=== PATIENT | female | born 1950 | race Caucasian/White ===

== ENCOUNTER 2020-03-03 11:32 | Outpatient (REF) | payer MEDICARE, SELFPAY | END 2020-03-03 11:33 | disposition home or self-care (01) | LOC: HO.LAB 11:32 | PROVIDERS: PCP Nurse Practitioner Family; Visit Provider Nurse Practitioner Gerontology | DX: Z20.828 Contact with and (suspected) exposure to other viral communicable diseases (principal) | CPT/HCPCS: 87635 ==

== ENCOUNTER 2020-04-01 16:34 | Outpatient (REF) | payer MEDICARE, SELFPAY | END 2020-04-01 16:35 | disposition home or self-care (01) | LOC: HO.LAB 16:34 | PROVIDERS: PCP Nurse Practitioner Family; Visit Provider Internal Medicine | DX: Z20.828 Contact with and (suspected) exposure to other viral communicable diseases (principal) | CPT/HCPCS: C9803; U0003 ==

== ENCOUNTER 2020-05-29 10:09 | Outpatient (REF) | payer MEDICARE, SELFPAY ==
--- NOTE | 2020-05-29 10:14 | MM_ITS ---
EXAMINATION: MM SCREENING DIGITAL BREAST TOMOSYNTHESIS, BILATERAL CLINICAL INFORMATION: Screening. Asymptomatic. Prior history right kidney for breast cancer 2010. COMPARISON: Mammography: 05/06/2019, 04/25/2018, 03/17/2017 TECHNIQUE: Digital breast tomosynthesis is performed in both the craniocaudal and mediolateral oblique views along with computer-aided detection (CAD). Synthesized 2D images are generated from the tomosynthesis. Additional exaggerated right CC view is provided. FINDINGS: There are scattered areas of fibroglandular density (ACR BI-RADS breast composition Category b). Changes on the right with decreased breast size. Stable scarring. Neither breast shows interval mass or architectural abnormality or abnormal calcifications. There are no significant changes from prior studies. MM/MM tomosynthesis screening BI IMPRESSION: No significant changes from prior exams. Post therapy changes right breast, stable. ASSESSMENT: BI-RADS 2: Benign RECOMMENDATION: Routine annual mammography screening. This patient's information was entered into a reminder system with a target due date for their next mammogram.
== END 2020-05-29 10:10 | disposition home or self-care (01) ==
LOC: HO.MAMMO 10:09
PROVIDERS: Visit Provider Nurse Practitioner Family
DX: Z12.31 Encounter for screening mammogram for malignant neoplasm of breast (principal)
CPT/HCPCS: 77063; 77067

== ENCOUNTER 2020-12-25 13:44 | Emergency (ER) | payer MEDICARE, SELFPAY ==
--- NOTE | ~2020-12-25 | XR_ITS ---
EXAMINATION: XR WRIST, LEFT CLINICAL INFORMATION: Wrist pain. COMPARISON: None TECHNIQUE: PA, lateral, and oblique views of the left wrist. FINDINGS: There is a comminuted distal radial fracture with intra-articular extension. Also visualized is minimally displaced ulnar styloid process fracture. There is mild dorsal soft tissue swelling. XR/XR wrist LT min 3V IMPRESSION: Comminuted distal radial fracture with intra-articular extension.
[2020-12-25 14:32] VITALS: BP 163/90; PULSE 66; RESP 16; TEMP 36.2; O2SAT 97; BMI 34.7
[2020-12-25] MEDS: Ketorolac Tromethamine 15 MG/ML VIAL 30 MG IM (15:07)
--- NOTE | 2020-12-25 15:28 | ED.EXTPRO ---
HPI - Extremity Problem General Chief complaint: Extremity Injury, Upper Stated complaint: + fracture wrist Time Seen by Provider: 12/25/20 14:39 Source: patient Mode of arrival: ambulatory Limitations: no limitations History of Present Illness HPI Narrative: Patient presents to ED for left upper extremity injury. Patient states last night she slipped and fell onto her left hand/wrist. Patient denies hitting head or loss of consciousness. Patient sent for urgent care for evaluation. MD Complaint: extremity pain Related Data Previous Rx's Medication Instructions Recorded ketorolac 10 mg tablet 10 mg PO QID PRN 5 Days #20 tab 12/25/20 Allergies Allergy/AdvReac Type Severity Reaction Status Date / Time simvastatin [SIMVASTATIN] Allergy Mild NAUSEA Unverified 02/06/20 15:16 acetaminophen [From PERCOCET] AdvReac Mild DIZZINESS/L Unverified 02/06/20 15:16 IGHTHEADEDN ESS OxyContin Allergy Unknown Uncoded 06/24/11 00:00 From PERCOCET AdvReac Mild DIZZINESS/L Uncoded 02/06/20 15:16 IGHTHEADEDN ESS Review of Systems Review of Systems: Yes all other systems are reviewed and are negative Constitutional: Constitutional: Reports as per HPI and Reports no additional constitutional complaints Eyes: Eyes: Reports as per HPI and Reports no additional eye complaints ENT: Reports system reviewed and no additional complaints, except as documented and Reports as per HPI Cardiovascular: Cardiovascular: Reports as per HPI and Reports no additional cardiovascular complaints Respiratory: Respiratory: Reports as per HPI and Reports no additional respiratory complaints Gastrointestinal: Gastrointestinal: Reports as per HPI and Reports no additional gastrointestinal complaints Musculoskeletal: Musculoskeletal: Reports no additional musculoskeletal complaints and Reports arthralgias (Left wrist) Neurologic: Reports system reviewed and no additional complaints, except as documented and Reports as per HPI FORMERLY [facility], [facility] Past Medical History Medical History (Updated 12/25/20 @ 16:30 by HONG Stanley) No known health problems Social History Social History Advance Directives: No Advance Directives Information Provided: No Physical Exam Vital Signs: Vital Signs: Last Vital Signs Temp 97.1 F 12/25/20 14:32 Pulse 66 12/25/20 14:32 Resp 16 12/25/20 14:32 BP 163/90 H 12/25/20 14:32 Pulse Ox 97 12/25/20 14:32 Body Mass Index 34.7 Const: General: cooperative, healthy appearing, comfortable, no acute distress, well developed, alert and awake Orientation/consciousness: patient oriented x3 HENMT: Head: Yes normal to inspection, Yes No palpable skull fracture present, Yes normocephalic, Yes atraumatic and No abrasion Eyes: General: appearance normal, both eyes and all related structures Neck: Neck: Yes normal visual inspection, Yes full ROM, Yes no lymphadenopathy, Yes no meningeal signs, Yes trachea midline, Yes supple and No tender Chest: Chest palpation & inspection: normal inspection of the chest and normal palpation of entire chest wall Resp: Effort & Inspection: normal respiratory effort and able to speak in complete sentences Auscultation: clear to auscultation bilaterally Cardio: Jugular venous distension: no JVD Heart sounds: S1 normal heart sound present and S2 normal heart sound present GI: Inspection: Yes normal to inspection and No abdominal wall ecchymosis Palpation (GI): Soft to palpation, not firm, nontender, no guarding and not rigid : General: No CVA tenderness and Yes no CVA tenderness Back/Spine/Pelvis: Back: no CVA tenderness, No CVA tenderness and No back tenderness Skin: General skin exam: no rashes or lesions noted and elasticity normal Neuro: General: patient oriented x3, gait normal, no meningeal signs and CN's II-XI intact bilaterally Cranial nerves: Yes CN's II-XII intact bilaterally Extrem: General: Yes normal to inspection and Yes full ROM Hand/finger images: 1. Positive for ecchymosis and tenderness on palpation. Vascular and neuro exam is intact. Motor exam limited due to pain Course Course Course Narrative: Patient will be sent for x-rays. Reevaluation(s) Reevaluation #1: X-ray shows left committed radial fracture. Patient placed in sugar-tong splint. Patient will follow-up with PCP Time: 16:27 MDM - Extremity (Nontraumatic) MDM Narrative Medical decision making narrative: Wrist fracture Discharge Plan Discharge Clinical Impression: Fracture of wrist Patient Disposition: Home, Self-Care Instructions: Wrist Fracture in Adults (ED) Additional Instructions: Your x-ray shows wrist fracture. Please contact orthopedic surgeon information that you were given. Return to the ED for severe pain, swelling, redness, bluish black discoloration of fingertips, numbness/tingling, or any other concerning symptoms. Prescriptions: New ketorolac 10 mg tablet 10 mg PO QID PRN (Reason: pain) 5 Days Qty: 20 RF: 0 Referrals: Jameson Bates MD [Physician] - 2 days (Left wrist fracture) Interventions: ED Discharge Assessment Last Done: 12/25/20 16:59 Discharge Date/Time: 12/25/20 17:01 Print Language: Bulgarian
== END 2020-12-25 17:01 | disposition home or self-care (01) ==
LOC: HO.ED 13:44
PROVIDERS: Emergency Provider Emergency Medicine Emergency Medical Services; PCP Nurse Practitioner Family; Visit Provider Internal Medicine
DX: S52.572A Other intraarticular fracture of lower end of left radius, initial encounter for closed fracture (principal); W01.0XXA Fall on same level from slipping, tripping and stumbling without subsequent striking against object, initial encounter; Y93.9 Activity, unspecified; Y92.9 Unspecified place or not applicable; Y99.9 Unspecified external cause status
CPT/HCPCS: 29125; 73110; 96372; 99283; 99284; J1885

== ENCOUNTER 2020-12-30 05:49 | Outpatient (REF) | payer MEDICARE, SELFPAY ==
--- NOTE | ~2020-12-30 | XR_ITS ---
EXAMINATION: XR WRIST, LEFT CLINICAL INFORMATION: Left wrist pain, fracture COMPARISON: 12/27/2020 TECHNIQUE: PA, lateral, and oblique views of the left wrist. FINDINGS: Redemonstration of the complex intra-articular fracture of the distal radius. There is been an increase in the impaction and volar displacement of 12/25/2020. No change in the minimally displaced avulsion fracture of the ulnar styloid. XR/XR wrist LT min 3V IMPRESSION: Worsening alignment of the complex intra-articular fracture of the distal radius, with increase in impaction/overriding and volar displacement.
== END 2020-12-30 05:50 | disposition home or self-care (01) ==
LOC: HO.HOSX 05:49
PROVIDERS: Visit Provider Physician Assistant
DX: S52.501A Unspecified fracture of the lower end of right radius, initial encounter for closed fracture (principal); W18.09XA Striking against other object with subsequent fall, initial encounter; Y93.9 Activity, unspecified; Y92.9 Unspecified place or not applicable; Y99.9 Unspecified external cause status
CPT/HCPCS: 73110; 99202

== ENCOUNTER 2020-12-31 06:03 | Day surgery (SDC) | payer MEDICARE, SELFPAY ==
[2020-12-31] VITALS (7 sets, daily range): BP systolic 144–172; BP diastolic 83–105; PULSE 62–77; RESP 16–18; TEMP 36.1–36.2; O2SAT 94–96; BMI 33.6
--- NOTE | ~2020-12-31 | FL_ITS ---
EXAMINATION: XR FLUOROSCOPY WITH IMAGES CLINICAL INFORMATION: ORIF left wrist COMPARISON: Left wrist 12/30/2020 TECHNIQUE: Fluoroscopy performed by Dr. Charlette Guzman. Fluoroscopy time: 56.9 seconds DAP: 3227 mGycm2 Images: 4 FINDINGS: There is a dorsal distal radial plate and screws stabilizing distal radial fracture and alignment. The radioulnar joint space is normal. Small ulnar styloid process fracture is unchanged. FL/FL guidance in OR IMPRESSION: Status post ORIF distal radius with fracture fragments in alignment.
[2020-12-31 06:24] LABS: Glucose, Whole Blood 106 mg/dL (60-115)
[2020-12-31] MEDS: Lactated Ringers 1,000 ML 50 ML IVCONT (08:02)
--- NOTE | 2020-12-31 08:03 | P.OP_ITS ---
Operative Note Operative Note Date of Service: 12/31/20 Narrative: Operative Note Narrative: Preop diagnosis: 1. Left Distal radius fracture, comminuted intra-articular volar Butler Postop diagnosis: Same Procedure: 1. Distal radius fracture open reduction internal fixation, 2 part intra-articular Surgeon: Jo Guzman MD Anesthesia: Mac plus regional block Findings: Volar Butler fracture pattern with volar displacement and proximal migration of the fragment and the carpus. Implants: A 3 hole standard Accu Med volar locking plate, with 5 2.3 mm locking pegs/screws, and 3 3.5 mm cortical screws Tourniquet time: 55 minutes EBL: 5.0 ml Specimen: None Drains: None Complications: None Disposition: Brought to the recovery room in stable condition Plan: Follow-up in 10-14 days for wound check, suture removal and postop radiographs The patient will be placed in either short-arm cast Encouraged no lifting of anything heavier than a cell phone. Please encourage active and passive range of motion of the digits. Follow-up at 4-5 weeks postop for repeat radiographs. Indications: The patient is a 70 year old woman with left comminuted intra- articular distal radius fracture, volar Butler . The risks and benefits of operative treatment, including but not limited to risk of damage to blood vessels, nerves, tendons, infection, recurrence, persistent pain or numbness, incomplete resolution of preoperative symptoms, or need for further surgery were discussed with the patient and they wished to proceed with surgery. Procedure: Once consent was obtained patient was brought back to the operating suite and placed in the operating table in a supine position. A regional block was performed by the anesthesia team. Perioperative antibiotics and anesthesia was administered by the anesthesia team. A tourniquet was applied to the proxi mal aspect of the left upper extremity and the limb was prepped and draped in a standard surgical fashion. The limb was elevated exsanguinated with Esmarch bandage and the tourniquet inflated to 250 mm of mercury for a total tourniquet time of 55 minutes. The FluoroScan was used throughout the case to assess our reduction, and facilitate implant placement. I made a 7 cm longitudinal incision over the distal aspect of the flexor carpi radialis tendon. The incision was made through the skin to the subcutaneous tissue using a 15. Blade. Then carefully dissected down to flexor carpi radialis tendon she tenotomy scissors. The FCR tendon sheath was then incised longitudinally using tenotomy scissors under direct visualization. The FCR tendon was then retracted ulnarly. I then made a longitudinal incision in the volar forearm fascia through the floor of FCR tendon sheath using tenotomy scissors under direct visualization. I identified the interval between the radial artery and the flexor tendons. This interval was developed further with my index finger, releasing some of the muscular fibers of the flexor pollicis longus. A dull weatlander retractor was then placed. I then created an ulnarly based flap of the pronator quadratus by releasing the radial and distal edges using a 15. Blade. A Pardo elevator was used to elevate the pronator quadratus from the volar surface of the distal radius. This then revealed to us our distal radius fracture. It was a volar Butler type fracture with volar displacement and proximal migration of the volar aspect of the distal radius and the carpus. An open reduction was then performed on our distal radius fracture. I then placed a short standard 3 hole Accu Med volar locking plate on the volar surface of the distal radius. I then secured the plate to the shaft with the 3.5 mm cortical screw through the oval hole. This was done by 1st drilling bicortically with a 2.8 mm drill bit and then placing a 12 mm 3.5 mm cortical s crew. Our reduction and placement of these implants was assessed on fluoroscopic images and adjusted as necessary to assure that we would capture the lunate facet fragment, and then a K-wire was placed through 1 of the distal hole securing the plate to the distal articular aspect of the radius. Once satisfied with the placement of these implants I then placed 5 2.3 mm locking screws/pegs through the distal aspect of the plate into the distal aspect of the radius. This was done by drilling through the pre position drill guide with a 1.8 mm drill bit, measuring and placing the appropriate length locking screw/locking peg. Once satisfied with the placement of these implants fluoroscopically I then placed 2 additional 3.5 mm cortical screws in the method noted above. Final radiographs were then obtained. The DRUJ was assessed and found to be stable on exam. I was satisfied with our reduction and placement of all implants. At this point the wound was irrigated with normal saline. The pronator quadratus was reduced back over the volar locking plate using some 3-0 Vicryl suture material. The tourniquet was then deflated and hemostasis was obtained with a brief period of local pressure and bipolar monopolar electrocautery. The subcutaneous layer was then reapproximated using some 4-0 Vicryl suture, and the skin edges were reapproximated using some 5 0 Prolene suture. The wound was then infiltrated with some 1% lidocaine with epinephrine postop pain control. A sterile dressing and a short dorsal splint allowing for active flexion and extension of the digits was applied. The patient appears to have tolerated the procedure well and with no complications. All digits were well vascularized conclusion of the case.
--- NOTE | 2020-12-31 08:05 | P.HPSUR_ITS ---
Pre-Procedural Eval Section A Date of Service: 12/31/20 Section B Chief Complaint: Distal Radius Fracture Allergies: Allergies Allergy/AdvReac Type Severity Reaction Status Date / Time simvastatin [SIMVASTATIN] Allergy Mild NAUSEA Verified 12/30/20 09:02 acetaminophen [From PERCOCET] AdvReac Mild DIZZINESS/L Verified 12/30/20 09:02 IGHTHEADEDN ESS codeine AdvReac CONFUSION/L Verified 12/31/20 07:28 [From Tylenol-Codeine #3] OOPY propoxyphene [From Darvon] AdvReac CONFUSION/L Verified 12/31/20 07:27 OOPY demorol Allergy Severe Nausea Uncoded 12/30/20 09:02 OxyContin Allergy Unknown Nausea Uncoded 12/30/20 09:02 From PERCOCET AdvReac Mild DIZZINESS/L Uncoded 02/06/20 15:16 [facility] I have reviewed the history and physical and performed a pertinent physical examination on my patient. No changes have occurred unless specified.
--- NOTE | 2020-12-31 09:40 | HO.ANESPROP2 ---
HPI - Anesthesia Eval Consult details Narrative: 70-year-old female here for radius fracture ORIF PMFSH Active Problems Active Problems: All Active Problems (Updated 12/30/20 @ 09:44 by Damaso Beasley) Distal radius fracture, right (Acute) Past Medical History Medical History (Updated 12/30/20 @ 09:44 by Damaso Beasley) Brain aneurysm Cataract Hypercholesteremia Hypertension Hypoglycemic disorder No known health problems Family History Family history of problems with anesthesia: No Surgical History Surgical History H/O wrist surgery S/P cholecystectomy History of Problems with Anesthesia: No Social History Social History (Updated 12/30/20 @ 09:03 by Damaso Beasley) Patient Tobacco Use Status: Never used Tobacco Use of substances other than those prescribed or required for medical reasons: No Have you been hit, kicked, punched, or otherwise hurt by someone within the past year? If so, by whom?: No Are you DNR?: No Advance Directives: No Advance Directives Information Provided: Yes Current occupational status: retired Current occupation: rt handed/ Meds Allergies Allergy/AdvReac Type Severity Reaction Status Date / Time simvastatin [SIMVASTATIN] Allergy Mild NAUSEA Verified 12/30/20 09:02 acetaminophen [From PERCOCET] AdvReac Mild DIZZINESS/L Verified 12/30/20 09:02 IGHTHEADEDN ESS codeine AdvReac CONFUSION/L Verified 12/31/20 07:28 [From Tylenol-Codeine #3] OOPY propoxyphene [From Darvon] AdvReac CONFUSION/L Verified 12/31/20 07:27 OOPY demorol Allergy Severe Nausea Uncoded 12/30/20 09:02 OxyContin Allergy Unknown Nausea Uncoded 12/30/20 09:02 From PERCOCET AdvReac Mild DIZZINESS/L Uncoded 02/06/20 15:16 IGHTHEADEDN ESS Active Medications: Current Medications Generic Name Dose Route Start Last Admin Trade Name Freq PRN Reason Stop Dose Admin Acetaminophen 650 mg 12/31/20 09:38 Acetaminophen 325 Mg Tablet PO ONCE PRN Pain, Mild (Pain Scale 1-3) Hydromorphone HCl 0.5 mg 12/31/20 09:38 Hydromorphone Hcl 0.5 Mg/0.5 Ml Syringe IVPUSH Q5M PRN Pain, Severe (Pain Scale 7-10) Protocol Lactated Ringer's 1,000 mls @ 50 mls/hr 12/31/20 08:00 12/31/20 08:02 Lr IVCONT 50 mls/hr .Q20H MAR Administration Promethazine HCl 12.5 mg/ 50.5 mls @ 202 mls/hr 12/31/20 09:38 Sodium Chloride IV ONCE PRN Nausea and Vomiting Ondansetron HCl 4 mg 12/31/20 09:38 Ondansetron Hcl 4 Mg/2 Ml Vial IVPUSH ONCE PRN Nausea and Vomiting Oxycodone HCl 5 mg 12/31/20 09:38 Oxycodone Hcl Immed Release 5 Mg Tablet PO ONCE PRN Pain, Severe (Pain Scale 7-10) Home Medications Medication Instructions Recorded Confirmed Last Taken Type atorvastatin 10 mg tablet 10 mg PO DAILY 12/30/20 Unknown History losartan 100 mg tablet 100 mg PO DAILY 12/30/20 12/31/20 06:49 History Exam Exam Date and Time: December 31, 2020 0940 Height,Weight and Vital Signs: Height 5 ft 4 in Weight 196 lb Last Vital Signs Temp 97.2 F 12/31/20 06:24 Pulse 77 12/31/20 06:24 Resp 18 12/31/20 06:24 BP 144/105 H 12/31/20 06:24 Pulse Ox 95 12/31/20 06:24 Pertinent Lab Results Pertinent Lab Results: Laboratory Tests 12/31/20 06:16 POC Glucose 106 Airway Mallampati Class: II TM Dist: >3cm Neck ROM: Full Loose/Missing/Broken Teeth: Yes Assessment and Plan Assessment Anesthesia Assessment: Anesthesia Plan Discussed and Chart Reviewed Final Anesthetic Review Family History of Problems with Anesthesia: No History of Problems with Anesthesia: No ASA Class: III Final Preanesthetic Review: No Changes in Pt Med Stat, Meds/Allgs Chart Reviewed, Consent Obtained/Reviewed and Anes Risks/Benef Reviewed Patient Risk: Intermediate Procedure Risk: Low Anesthetic Plan Anesthetic Plan: GA and Regional Block Disposition: Standard PACU
[2020-12-31] MEDS: ondansetron HCL 4 MG/2 ML VIAL IVPUSH (10:10)
[2020-12-31] MEDS: Acetaminophen 325 MG TABLET 650 MG PO (11:37)
[2020-12-31] MEDS: Ibuprofen 600 MG TABLET PO (11:57)
== END 2020-12-31 12:00 | disposition home or self-care (01) ==
PROVIDERS: PCP Nurse Practitioner Family; Visit Provider Orthopaedic Surgery
PROC: (CPT 25608; principal; 2020-12-31 07:30)
DX: S52.572A Other intraarticular fracture of lower end of left radius, initial encounter for closed fracture (principal); W01.0XXA Fall on same level from slipping, tripping and stumbling without subsequent striking against object, initial encounter; Y93.01 Activity, walking, marching and hiking; Y92.9 Unspecified place or not applicable; Y99.8 Other external cause status; I10 Essential (primary) hypertension; E16.2 Hypoglycemia, unspecified; Z79.899 Other long term (current) drug therapy; Z88.8 Allergy status to other drugs, medicaments and biological substances
CPT/HCPCS: 25608; 82947; C1713; C1769; J0690; J1100; J2250; J2405; J3010

== ENCOUNTER 2021-01-06 08:31 | Outpatient (REF) | payer MEDICARE, SELFPAY ==
--- NOTE | ~2021-01-06 | XR_ITS ---
EXAMINATION: XR WRIST, LEFT CLINICAL INFORMATION: Pain; ORIF of distal radial fracture. COMPARISON: Prior examinations, most recently 12/30/2020. TECHNIQUE: PA, lateral, and oblique views of the left wrist. FINDINGS: There is bony demineralization. There is moderate osteoarthritic change of the fifth metacarpophalangeal joint. There is moderately severe osteoarthritic change of the first carpometacarpal joint. The proximal and distal carpal rows are intact. There is narrowing of the radiocarpal interval. There is an ulnar positive variance. There is stable alignment of an intra-articular fracture of the distal left radius, with intact volar fixator plate and fixator screws. There is stable alignment of a mildly displaced ulnar styloid fracture fragment. The soft tissue planes are unremarkable, without foreign body. XR/XR wrist LT min 3V IMPRESSION: There is stable alignment of distal left radial and ulnar fracture fragments status-post ORIF.
[2021-01-06 15:22] LABS: Anion Gap 14 (12-20); Blood Urea Nitrogen 7 mg/dL (9-16); Calcium 9.7 mg/dL (8.4-10.2); Carbon Dioxide 26 mmol/L (22-29); Chloride 104 mmol/L (96-108); Estimated Glomerular Filt Rate > 60; Glucose Random 99 mg/dL (60-115); Potassium 4.4 mmol/L (3.3-5.1); Sodium 140 mmol/L (135-145)
== END 2021-01-06 08:32 | disposition home or self-care (01) ==
LOC: HO.HOSX 08:31
PROVIDERS: Absent Provider Internal Medicine; PCP Nurse Practitioner Family; Visit Provider Orthopaedic Surgery
DX: S52.502D Unspecified fracture of the lower end of left radius, subsequent encounter for closed fracture with routine healing (principal); R10.13 Epigastric pain
CPT/HCPCS: 36415; 73110; 80048; 99212

== ENCOUNTER 2021-01-13 08:17 | Outpatient (REF) | payer MEDICARE, SELFPAY ==
--- NOTE | ~2021-01-13 | XR_ITS ---
EXAMINATION: XR WRIST, LEFT CLINICAL INFORMATION: Left wrist pain COMPARISON: Left wrist radiographs 01/06/2020 TECHNIQUE: PA, lateral, and oblique views of the left wrist. FINDINGS: Again noted are fractures of the distal radius and ulna. Plate and screw device is present over the distal radial fracture and appears unchanged when compared to the prior study. The appearance of the ulnar styloid fracture is unchanged. Moderate degenerative changes present at the 1st metacarpocarpal joint which are unchanged. XR/XR wrist LT min 3V IMPRESSION: Unchanged appearances when compared to 01/06/2020 with distal radial and ulnar fractures and other incidental findings as described above.
== END 2021-01-13 08:18 | disposition home or self-care (01) ==
LOC: HO.HOSX 08:17
PROVIDERS: Visit Provider Orthopaedic Surgery
DX: Z13.89 Encounter for screening for other disorder (principal)
CPT/HCPCS: 73110

== ENCOUNTER 2021-01-13 08:28 | Outpatient (REF) | payer MEDICARE, SELFPAY ==
--- NOTE | ~2021-01-13 | CT_ITS ---
EXAMINATION: CT ABDOMEN AND PELVIS WITH CONTRAST CLINICAL INFORMATION: Epigastric pain. COMPARISON: Previous CT colonography exam March 2017 TECHNIQUE: Multidetector volumetric images were obtained from the superior aspect of the liver through the pubic symphysis following administration 85 mL of Omnipaque 350 intravenous contrast. Sagittal and coronal reformatted images were obtained on the technologist's workstation. Oral contrast: Yes. This CT examination was performed using dose optimization techniques as appropriate, variously including the following: *Automated exposure control *Adjustment of mA and/or kV according to patient size (this includes techniques or standardized protocols for targeted exams where dose is matched to indication/reason for exam; i.e. extremities or head) *Use of iterative reconstruction technique DLP: 606 mGy-cm FINDINGS: LUNG BASES: The visualized lung bases are unremarkable. LIVER, GALLBLADDER, AND BILIARY TREE: The liver is low in attenuation suggestive of fatty infiltration. The gallbladder has been removed. No focal hepatic lesion or biliary ductal dilatation is present. PANCREAS: Unremarkable. SPLEEN: Unremarkable. ADRENAL GLANDS: Unremarkable. KIDNEYS AND URETERS: There is a 4 cm right renal cyst. The kidneys are otherwise unremarkable. BLADDER: Unremarkable. GASTROINTESTINAL TRACT: There is diverticulosis of the colon. There is mild wall thickening of the sigmoid colon. While this may represent chronic changes related to diverticular disease, it is difficult to exclude mild diverticulitis and clinical correlation is recommended. The small and large bowel is otherwise unremarkable. The stomach is unremarkable. The appendix is unremarkable. ABDOMINAL WALL: There is a small umbilical hernia containing fat. LYMPH NODES: Normal. VASCULAR: There is evidence of atherosclerotic disease. No aneurysm is seen. PELVIC VISCERA: There may be mild endometrial thickening or fluid. Endometrial thickness measures 6-7 mm. The uterus and adnexa are otherwise unremarkable. OSSEOUS STRUCTURES: There is spondylolysis and spondylolisthesis and degenerative disc disease at L5-S1. There is degenerative disc disease at L2-L3. CT/CT abdomen pelvis w con IMPRESSION: Diverticular disease of the sigmoid colon. Right renal cyst. Fatty liver. Question endometrial fluid or thickening. This could be better assessed with pelvic ultrasound, particularly if there is history of vaginal bleeding.
[2021-01-13] MEDS: iohexoL 350 MG/ML 100 ML INFUS..BTL IV (12:02)
== END 2021-01-13 08:29 | disposition home or self-care (01) ==
LOC: HO.CT 08:28
PROVIDERS: Visit Provider Internal Medicine
DX: R10.13 Epigastric pain (principal); S52.502D Unspecified fracture of the lower end of left radius, subsequent encounter for closed fracture with routine healing
CPT/HCPCS: 29085; 73110; 74177; 99212; Q9967

== ENCOUNTER 2021-02-17 08:24 | Outpatient (REF) | payer MEDICARE, SELFPAY ==
--- NOTE | ~2021-02-17 | XR_ITS ---
EXAMINATION: XR WRIST, LEFT CLINICAL INFORMATION: Left wrist pain. COMPARISON: Left wrist 01/13/2021 TECHNIQUE: PA, lateral, and oblique views of the left wrist. FINDINGS: There is a fracture distal radius stabilized with volar plate and screws with a fracture fragment alignment and stable compared to previous study 01/13/2021. There is an old ulnar styloid process fracture which is unchanged. The soft tissues are normal. XR/XR wrist LT min 3V IMPRESSION: Stable healed distal radial fracture following ORIF. Old ulnar styloid process fracture is noted. Overall no change from 01/13/2021
== END 2021-02-17 08:25 | disposition home or self-care (01) ==
LOC: HO.HOSX 08:24
PROVIDERS: Visit Provider Orthopaedic Surgery
DX: S52.502D Unspecified fracture of the lower end of left radius, subsequent encounter for closed fracture with routine healing (principal)
CPT/HCPCS: 73110; 99212

== ENCOUNTER → 2021-04-07 12:23 | Outpatient (BNVA) | payer MEDICARE, SELFPAY | PROVIDERS: PCP Nurse Practitioner Family; Visit Provider Orthopaedic Surgery | DX: Z98.1 Arthrodesis status (principal); S52.572D Other intraarticular fracture of lower end of left radius, subsequent encounter for closed fracture with routine healing; X58.XXXD Exposure to other specified factors, subsequent encounter; I10 Essential (primary) hypertension; E78.00 Pure hypercholesterolemia, unspecified; Z88.6 Allergy status to analgesic agent; Z88.8 Allergy status to other drugs, medicaments and biological substances | CPT/HCPCS: 99212 ==

== ENCOUNTER 2021-06-11 13:49 | Outpatient (REF) | payer MEDICARE, SELFPAY ==
--- NOTE | ~2021-06-11 | MM_ITS ---
EXAMINATION: MM SCREENING DIGITAL BREAST TOMOSYNTHESIS, BILATERAL CLINICAL INFORMATION: Right lumpectomy for breast cancer, 2010. Due for yearly exam. COMPARISON: Mammography: 05/29/2020, 05/06/2019, 04/25/2018, 03/17/2017 TECHNIQUE: Digital breast tomosynthesis is performed in both the craniocaudal and mediolateral oblique views along with computer-aided detection (CAD). Synthesized 2D images are generated from the tomosynthesis. FINDINGS: There are scattered areas of fibroglandular density (ACR BI-RADS breast composition Category b). There are post therapy changes right breast similar to our studies. Left breast is stable as well. Parenchymal pattern is similar to prior studies. There is no developing density or architectural abnormality. The axilla and skin contours are unremarkable. No significant changes. MM/MM tomosynthesis screening BI IMPRESSION: No mammographic evidence of malignancy. Post therapy changes right breast. ASSESSMENT: BI-RADS 2: Benign RECOMMENDATION: Routine annual mammography screening. This patient's information was entered into a reminder system with a target due date for their next mammogram.
== END 2021-06-11 13:50 | disposition home or self-care (01) ==
LOC: HO.MAMMO 13:49
PROVIDERS: PCP Nurse Practitioner Family; Visit Provider Nurse Practitioner Family
DX: Z12.31 Encounter for screening mammogram for malignant neoplasm of breast (principal)
CPT/HCPCS: 77063; 77067

== ENCOUNTER 2022-06-17 13:47 | Outpatient (REF) | payer MEDICARE, SELFPAY ==
--- NOTE | ~2022-06-17 | MM_ITS ---
EXAMINATION: MM SCREENING DIGITAL BREAST TOMOSYNTHESIS, BILATERAL CLINICAL INFORMATION: Screening. Asymptomatic. Remote right lumpectomy for breast cancer, 2010. The lifetime risk of breast cancer based on the Tyrer-Cuzick Model is 3%. COMPARISON: Mammography: 06/11/2021, 05/29/2020, 05/06/2019 TECHNIQUE: Digital breast tomosynthesis is performed in both the craniocaudal and mediolateral oblique views along with computer-aided detection (CAD). Synthesized 2D images are generated from the tomosynthesis. Additional exaggerated right CC view is provided. FINDINGS: There are scattered areas of fibroglandular density (ACR BI-RADS breast composition Category b). Right breast post therapy changes is similar to prior studies. There is mild reduced breast size and stable scarring. Scattered bilateral vascular calcifications are again seen. No abnormal calcifications. Neither breast shows interval mass or architectural abnormality or developing density. No significant changes. MM/MM tomosynthesis screening BI IMPRESSION: -No mammographic evidence of malignancy. -Post therapy changes right breast. ASSESSMENT: BI-RADS 2: Benign RECOMMENDATION: Routine annual mammography screening. This patient's information was entered into a reminder system with a target due date for their next mammogram.
== END 2022-06-17 13:48 | disposition home or self-care (01) ==
LOC: HO.MAMMO 13:47
PROVIDERS: PCP Nurse Practitioner Family; Visit Provider Nurse Practitioner Family
DX: Z12.31 Encounter for screening mammogram for malignant neoplasm of breast (principal)
CPT/HCPCS: 77063; 77067

== ENCOUNTER 2023-06-12 12:36 | Outpatient (REF) | payer MEDICARE, SELFPAY ==
[2023-06-12 12:50] LABS: MANUAL DIFF FLAG NO
[2023-06-12 14:18] LABS: Basophils Absolute Auto 0.1 X10*3/uL (0.0-0.2); Basophils Percent Auto 0.9 % (0-2); Eosinophils Absolute Auto 0.1 X10*3/uL (0.0-0.4); Eosinophils Percent Auto 1.3 % (0-4); Hematocrit 38.3 % (37.0-47.0); Hemoglobin 12.3 g/dl (12.0-16.0); Imm Gran Abs Auto 0.02 X10*3/uL (0.00-0.03); Imm Gran Pct Auto 0.4 % (0.0-0.4); Lymphocytes Absolute Auto 1.7 X10*3/uL (1.2-4.9); Lymphocytes Percent Auto 31.2 % (20-40); Mean Corpuscular HGB Conc 32.1 g/dl (31.0-35.0); Mean Corpuscular Hemoglobin 29.9 pg (27.0-33.0); Mean Platelet Volume 9.7 fL (9.4-12.3); Monocytes Absolute Auto 0.5 X10*3/uL (0.1-1.2); Monocytes Percent Auto 8.8 % (2-11); Neutrophils Absolute Auto 3.2 x10*3/uL (2.0-8.3); Neutrophils Percent Auto 57.4 % (45-73); Platelet Count 282 X10*3/uL (160-400); Red Blood Count 4.12 X10*6/uL (4.20-5.50); Red Cell Distribution Width 13.3 % (11.0-16.0); White Blood Count 5.5 X10*3/uL (4.8-10.8)
[2023-06-12 14:24] LABS: Estimated Average Glucose 108 mg/dL; Hemoglobin A1c % 5.4 % (<6.0)
[2023-06-12 15:29] LABS: Alanine Aminotransferase 13 U/L (0-31); Albumin Level 4.2 g/dL (3.5-5.0); Alkaline Phosphatase 76 U/L (39-117); Anion Gap 13 (12-20); Aspartate Amino Transferase 17 U/L (5-31); Bilirubin Total 0.7 mg/dL (0.0-1.0); Blood Urea Nitrogen 12 mg/dL (9-16); Calcium 9.7 mg/dL (8.4-10.2); Carbon Dioxide 29 mmol/L (22-29); Chloride 107 mmol/L (96-108); Cholesterol 187 mg/dL (<200); Estimated Glomerular Filt Rate > 60; Glucose Random 95 mg/dL (60-115); HDL Cholesterol 64 mg/dL (>40); LDL Cholesterol Calculated 111 mg/dL (<100); Potassium 4.3 mmol/L (3.3-5.1); Sodium 145 mmol/L (135-145); Total Protein 7.4 g/dL (6.5-8.0); Triglycerides 60 mg/dL (<150)
== END 2023-06-12 12:37 | disposition home or self-care (01) ==
LOC: HO.LAB 12:36
PROVIDERS: PCP Nurse Practitioner Family; Visit Provider Nurse Practitioner Family
DX: E78.00 Pure hypercholesterolemia, unspecified (principal); I10 Essential (primary) hypertension; R73.01 Impaired fasting glucose
CPT/HCPCS: 36415; 80053; 80061; 83036; 85025

== ENCOUNTER 2023-06-22 13:22 | Outpatient (REF) | payer MEDICARE, SELFPAY ==
--- NOTE | ~2023-06-22 | MM_ITS ---
EXAMINATION: MM SCREENING DIGITAL BREAST TOMOSYNTHESIS, BILATERAL CLINICAL INFORMATION: Screening. Asymptomatic. The patient is status post right breast conservation treatment cancer diagnosed in 2010. COMPARISON: Mammography: This study is compared with prior exams dating back to 2018. TECHNIQUE: Digital breast tomosynthesis is performed in both the craniocaudal and mediolateral oblique views along with computer-aided detection (CAD). Synthesized 2D images are generated from the tomosynthesis. FINDINGS: There are scattered areas of fibroglandular density (ACR BI-RADS breast composition Category b). There are no significant masses, abnormal calcifications, or other abnormalities. There are postsurgical changes of the upper outer quadrant of the right breast. MM/MM tomosynthesis screening BI IMPRESSION: No mammographic evidence of malignancy. ASSESSMENT: BI-RADS BI-RADS 2 - Benign Findings RECOMMENDATION: Routine annual mammography screening. 1 year F/U This examination should not preclude the clinical evaluation of a suspicious palpable abnormality. This patient's information was entered into a reminder system with a target due date for their next mammogram.
== END 2023-06-22 13:23 | disposition home or self-care (01) ==
LOC: HO.MAMMO 13:22
PROVIDERS: PCP Nurse Practitioner Family; Visit Provider Nurse Practitioner Family
DX: Z12.31 Encounter for screening mammogram for malignant neoplasm of breast (principal)
CPT/HCPCS: 77063; 77067

== ENCOUNTER → 2023-06-22 13:45 | Outpatient (BNV) | payer MEDICARE, SELFPAY | PROVIDERS: PCP Nurse Practitioner Family; Visit Provider Radiology Diagnostic Radiology | DX: Z12.31 Encounter for screening mammogram for malignant neoplasm of breast (principal) | CPT/HCPCS: 77063; 77067 ==

== ENCOUNTER 2023-12-28 12:15 | Outpatient (AMB) | payer MEDICARE, SELFPAY ==
[2023-12-28 13:07] VITALS: BP 130/74; PULSE 72; TEMP 36.6; O2SAT 98
--- NOTE | 2023-12-28 13:07 | AM.OFFWIN_ITS ---
Intake Vital Signs 12/28/23 13:07 Height 5 ft 4.5 in BP 130/74 Blood Pressure Location Lt brachial Position Sitting Pulse 72 Pulse Source Pulse Oximeter Temp 97.9 F Temp Source Temporal Artery Scan Pulse Oximetry (%) 98 Oxygen Delivery Method Room Air Intake Visit Reasons: EP RT foot pain, very swollen near pinky toe Intake Note: pt is here for right foot pain, very swollen near pinky toe Patient Tobacco Use Status: Never used Tobacco Allergies simvastatin [SIMVASTATIN] Allergy (Mild, Verified 12/28/23 13:07) NAUSEA acetaminophen [From PERCOCET] Adverse Reaction (Mild, Verified 12/28/23 13:07) DIZZINESS/LIGHTHEADEDNESS codeine [From Tylenol-Codeine #3] Adverse Reaction (Verified 12/28/23 13:07) CONFUSION/LOOPY propoxyphene [From Darvon] Adverse Reaction (Verified 12/28/23 13:07) CONFUSION/LOOPY demorol Allergy (Severe, Uncoded 12/30/20 09:02) Nausea OxyContin Allergy (Unknown, Uncoded 12/30/20 09:02) Nausea From PERCOCET Adverse Reaction (Mild, Uncoded 02/06/20 15:16) DIZZINESS/LIGHTHEADEDNESS Do you need a note to return to daycare/school/sports/work: Yes HPI EP RT foot pain, very swollen near pinky toe HPI Details This note is constructed using voice recognition software. While every effort has been made to ensure accuracy, parquetry layer errors may have been included. The patient is a 73 year old female who presents to the clinic today with swelling and pain in right foot, pinky toe. She notes that on Monday she had Ms. Stepped landing hard on her right foot, and since then she has had some inflammation, included doing bruising and pain in her foot going into her pinky toe and her 2nd toe. She has tried ice which seems to help reduce some of the pain. [facility] Medical History Brain aneurysm Cataract Hypercholesteremia Hypertension Hypoglycemic disorder No known health problems Surgical History H/O wrist surgery S/P cholecystectomy Social History Patient Tobacco Use Status: Never used Tobacco Current occupational status: retired Current occupation: rt handed Review of Systems Const All systems reviewed & are unremarkable except as noted in HPI and below Physical Exam Vital Signs: Last Vital Signs Temp 97.9 F 12/28/23 13:07 Pulse 72 12/28/23 13:07 BP 130/74 12/28/23 13:07 Pulse Ox 98 12/28/23 13:07 Oxygen Delivery Method Room Air 12/28/23 13:07 Const General: cooperative, healthy appearing, comfortable, no acute distress and alert Orientation/consciousness: patient oriented x3 Limitations: no limitations Skin General skin exam: no rashes or lesions noted, elasticity normal and turgor normal Neuro General: patient oriented x3 Extrem Other: Ecchymosis over top of right foot from 2nd to 5th metatarsal. Strength 5/5 minimal edema present. Antalgic gait. General: Yes normal to inspection, Yes full ROM, Yes capillary refill normal and Yes normal exam except as noted Psych Appearance: grossly normal Mental Status: mental status grossly normal Speech and movement: Normal speech and movement present Affect: normal affect Assessment & Plan Assessment & Plan (1) Right foot pain: Code(s): M79.671 - Pain in right foot Plan: Given nature of injury, concern for fracture and foot. X-ray ordered today to rule out. (2) Fracture, foot: Code(s): S92.909A - Unspecified fracture of unspecified foot, initial encounter for closed fracture Qualifiers: Encounter type: initial encounter Fracture type: closed Laterality: right Qualified Code(s): S92.901A - Unspecified fracture of right foot, initial encounter for closed fracture Plan: X-ray reviewed of right foot showing displaced fractures in the 4th and 5th. Martin wrap applied, patient put in boot. Referral for ortho advised. We are unable to place that from here, given that she is not a patient of [facility]. I have advised her to also contact her primary care provider for referral to ortho so that she can be seen as soon as possible. Plan See above for full details and plan. Coding Level of Care Code Est Pt Level 4 (64850) Diagnoses Right foot pain M79.671 Closed fracture of right foot, initial encounter S92.901A Encounter type: initial encounter Fracture type: closed Laterality: right
== END 2023-12-28 15:19 | disposition home or self-care (01) ==
PROVIDERS: PCP Student in an Organized Health Care Education/Training Program; Visit Provider Registered Nurse
DX: M79.671 Pain in right foot (principal); S92.901A Unspecified fracture of right foot, initial encounter for closed fracture
CPT/HCPCS: 99214

== ENCOUNTER 2023-12-28 13:40 | Outpatient (REF) | payer MEDICARE, SELFPAY ==
--- NOTE | ~2023-12-28 | XR_ITS ---
EXAMINATION: XR FOOT, RIGHT CLINICAL INFORMATION: Right foot pain. COMPARISON: None available. TECHNIQUE: AP, lateral, and oblique views of the right foot. FINDINGS: A fracture is present at the right fourth metatarsal neck with medial displacement of the distal fracture fragment by 3 mm. There is a fracture of the fifth metatarsal shaft with medial displacement of the distal fragment by 3 mm. Bones are osteopenic. No additional fractures are identified. Normal alignment at the TMT joints. Joint spaces appear well-preserved. Soft tissues are swollen at the ankle and foot. Small enthesopathic spur is present at the plantar fascial origin on the calcaneus. XR/XR foot RT min 3V IMPRESSION: Mildly displaced fractures of the fourth and fifth metatarsals.
== END 2023-12-28 13:41 | disposition home or self-care (01) ==
LOC: HO.HMGCX 13:40
PROVIDERS: PCP Student in an Organized Health Care Education/Training Program; Visit Provider Registered Nurse
DX: M79.671 Pain in right foot (principal)
CPT/HCPCS: 73630

== ENCOUNTER 2024-01-05 13:22 | Outpatient (AMB) | payer MEDICARE, SELFPAY ==
--- NOTE | 2024-01-05 13:24 | MHC.OFFVIS ---
Intake Visit Reasons: Newprob-Unspecified fracture of right foot Intake Note: Vickie is a 73 year old female who presents today for a new problem visit with complaints of right foot pain. in 12/24/23 she stepped off a step and throught she was further to the ground than she was so she stepped too hard on the foot. Later that night she had an increase of pain and swelling. She was given a tall boot at the walk in clinic but it is too heavy for her to walk so she has been wearing a stiff sandal Allergies simvastatin [SIMVASTATIN] Allergy (Mild, Verified 12/28/23 13:07) NAUSEA acetaminophen [From PERCOCET] Adverse Reaction (Mild, Verified 12/28/23 13:07) DIZZINESS/LIGHTHEADEDNESS codeine [From Tylenol-Codeine #3] Adverse Reaction (Verified 12/28/23 13:07) CONFUSION/LOOPY propoxyphene [From Darvon] Adverse Reaction (Verified 12/28/23 13:07) CONFUSION/LOOPY demorol Allergy (Severe, Uncoded 12/30/20 09:02) Nausea OxyContin Allergy (Unknown, Uncoded 12/30/20 09:02) Nausea From PERCOCET Adverse Reaction (Mild, Uncoded 02/06/20 15:16) DIZZINESS/LIGHTHEADEDNESS HPI HPI Newprob-Unspecified fracture of right foot: Details: Vickie is a 73 year old female who presents today for a new problem visit with complaints of right foot pain. in 12/24/23 she stepped off a step and throught she was further to the ground than she was so she stepped too hard on the foot. Later that night she had an increase of pain and swelling. She was given a tall boot at the walk in clinic but it is too heavy for her to walk so she has been wearing a stiff sandal [facility] Medical History Brain aneurysm Cataract Hypercholesteremia Hypertension Hypoglycemic disorder No known health problems Surgical History H/O wrist surgery S/P cholecystectomy Social History Patient Tobacco Use Status: Never used Tobacco Current occupational status: retired Current occupation: rt handed Physical Exam Extrem Other: mild forefoot swelling with nl gait skin intact minimal pain and no deformity Results Reviewed Results Reviewed: I personally reviewed relevant radiographs. Mildly displaced fractures of the fourth and fifth metatarsals. Assessment & Plan Assessment & Plan (1) Fracture of metatarsal of right foot, closed: Code(s): S92.301A - Fracture of unspecified metatarsal bone(s), right foot, initial encounter for closed fracture Category: Medical Plan: Minimally displaced fractures of right 4th and 5th MT. She is walking comfortably in a stiff soled shoe. She should continue to do so and may follow in 4-6 weeks if her swelling is not improving or if there are any problems. She has no pain at this time. Coding Level of Care Code Est Pt Level 3 (32404) Diagnoses Fracture of metatarsal of right foot, closed S92.301A
== END 2024-01-05 13:44 | disposition home or self-care (01) ==
PROVIDERS: Absent Provider Orthopaedic Surgery; PCP Student in an Organized Health Care Education/Training Program; Visit Provider Orthopaedic Surgery
DX: S92.341A Displaced fracture of fourth metatarsal bone, right foot, initial encounter for closed fracture (principal); S92.351A Displaced fracture of fifth metatarsal bone, right foot, initial encounter for closed fracture
CPT/HCPCS: 99213

== ENCOUNTER → 2024-01-05 13:22 | Outpatient (BNVA) | payer MEDICARE, SELFPAY | PROVIDERS: Absent Provider Orthopaedic Surgery; PCP Student in an Organized Health Care Education/Training Program; Visit Provider Physician Assistant | DX: S92.341A Displaced fracture of fourth metatarsal bone, right foot, initial encounter for closed fracture (principal); S92.351A Displaced fracture of fifth metatarsal bone, right foot, initial encounter for closed fracture | CPT/HCPCS: 99212 ==

== ENCOUNTER → 2024-06-27 13:30 | Outpatient (BNV) | payer MEDICARE, SELFPAY | PROVIDERS: PCP Student in an Organized Health Care Education/Training Program; Visit Provider Internal Medicine | DX: Z12.31 Encounter for screening mammogram for malignant neoplasm of breast (principal) | CPT/HCPCS: 77063; 77067 ==